=== PATIENT | male | born 1990 | race African-American/Black ===

== ENCOUNTER 2021-03-07 04:40 | Day surgery (SDC) | payer OTHER ==
[2021-03-05 15:46] VITALS: BMI 22.1
[2021-03-07 11:35] VITALS: TEMP 98.1
[2021-03-07 13:33] VITALS: PULSE 62
[2021-03-07 13:50] VITALS: BP 112/71
== END 2021-03-07 14:05 | disposition home or self-care (01) ==
LOC: JASU-ENDO 04:40
PROVIDERS: ATTEND Internal Medicine Gastroenterology
PROC: 0DJD8ZZ Inspection of Lower Intestinal Tract, Via Natural or Artificial Opening Endoscopic (ICD-10-PCS; principal; 2021-03-07 11:00)
DX: K64.8 Other hemorrhoids (principal)